=== PATIENT | female | born 1930 | race Caucasian/White ===

== ENCOUNTER 2017-05-06 08:49 | Observation (INO) | payer MEDICARE, OTHER ==
--- NOTE | 2017-05-06 11:04 | OR ---
Anesthesia Pre Procedure Eval Date of Service: 05/06/17 Pre Procedure Evaluation: Last Vital Signs Temp 36.8 C 05/06/17 09:20 Pulse 72 05/06/17 09:20 Resp 16 05/06/17 09:20 BP 136/52 05/06/17 09:20 Pulse Ox 97 05/06/17 09:20 Anesthesia Pre Procedure Evaluation DATE: 05/06/2017. TIME: 1055 INDICATIONS: Severe low back pain PAST MEDICAL HISTORY: 1 month history of low back pain, lumbar compression fractures, L4-5 disc bulge, spinal stenosis. EXAM: MRI report was reviewed. Pain is 10/10 on pain scale at present. ASSESSMENT OF MEDICAL STATUS: O.K. to proceed with WESLEY. PLANNED PROCEDURE: Fluoroscopic guided epidural steroid injection L4-5. Home Medications: HOME MEDICATIONS Acetaminophen [Tylenol] 1,000 mg PO Q6H PRN 05/03/17 [Last Taken Unknown] Aspirin [Aspirin Enteric Coated] 81 mg PO HS 05/03/17 [Last Taken Unknown] Calcium Carbonate/Vitamin D3 [Caltrate-600 with Vit D Tab] 1 each PO DAILY 05/03 [Last Taken Unknown] Clorazepate Dipotassium [Tranxene] 0.5 tab PO DAILY 05/03/17 [Last Taken Unknown ] Enalapril Maleate [Vasotec] 10 mg PO DAILY 05/03/17 [Last Taken 05/06/17 07:30] Flaxseed Oil [Flax Seed Oil] 1,000 mg PO DAILY 05/03/17 [Last Taken Unknown] Gemfibrozil [Lopid] 600 mg PO BID 05/03/17 [Last Taken Unknown] Hydroxyurea [Hydrea] 1,000 mg PO Q2D MDD alternate days with 500mg 05/03/17 [ Last Taken Unknown] Hydroxyurea [Hydrea] 500 mg PO Q2D MDD alternate days with 1000mg 05/03/17 [ Last Taken Unknown] Lidocaine [Lidoderm 5%] 1 patch TP DAILY MDD 12 hrs on, 12 hrs off 05/03/17 [ Last Taken Unknown] Multivit-Min/FA/Lycopen/Lutein [Centrum Silver Tablet] 1 each PO DAILY 05/03/17 [Last Taken Unknown] Ranitidine HCl [Zantac] 150 mg PO DAILY 05/03/17 [Last Taken Unknown]
[2017-05-06] MEDS ORDERED: DEXAMETHASONE SODIUM PHOSPHATE 10 MG/ML VIAL IJ ONE (11:34)
[2017-05-06] MEDS ORDERED: LIDOCAINE HCL/PF 5 ML VIAL IJ ONE (11:35)
[2017-05-06] MEDS ORDERED: IOPAMIDOL 20 ML VIAL IJ ONE (11:35)
--- NOTE | 2017-05-06 11:50 | OR ---
Anesthesia Procedure Note - Anesthesia Procedure Note Date of Service: 05/06/17 Narrative: Vital Signs - Last Taken Temp 36.8 C 05/06/17 09:20 Pulse 72 05/06/17 09:20 Resp 16 05/06/17 09:20 BP 136/52 05/06/17 09:20 Pulse Ox 97 05/06/17 09:20 05/06/17 11:47 ANESTHESIA PROCEDURE NOTE Date of Procedure: 05/06/2017. Time of procedure: 1130. Performed by: Guevara Sparrow CRNA Relations Specialist: None. Preprocedure diagnosis: Severe low back pain, multiple thoracic and lumbar compression fractures, L4-5 disc bulge, spinal stenosis. Post procedure diagnosis: Same. Procedure: Fluoroscopic guided epidural Steroid Injection L4-5. Indications: This 86-year-old female with a one-month history of nonradiating low back pain. Potential risks and benefits of the procedure were discussed with the patient and consent was obtained. Findings: See below. Details of the procedure: The patient was brought back to operating room #4. The patient was then placed in the prone position to comfort. DuraPrep was applied to the patient's back. Patient was then draped in sterile fashion. Lidocaine 1% was infiltrated to the skin and subcutaneous tissues at the level of the L4-5 interspace using fluoroscopic guidance. The epidural space was identified using a 20-gauge Tuohy needle with [id number] technique. 1 mL of Isovue contrast was then injected after negative aspiration for blood and CSF. The epidural space was outlined in the AP and lateral views. Preservative free Decadron 10 mg + 5 mL of 1% preservative-free lidocaine was administered to the epidural space after negative aspiration for blood and CSF. The Tuohy needle was removed intact. A Band-Aid was applied to the patient's back. The patient was then placed in a supine position for 5 minutes before returning to the ambulatory surgical unit. Total fluoroscopy time: 11.9 seconds. Cumulative dose: 2.41 mGy. EBL: Minimal. Fluids: N/A. Specimen: N/A. Post procedure condition: The patient tolerated the procedure well. No complications were noted. No motor weaknesses or paresthesias were noted upon discharge. Thank you for this consultation. Guevara Sparrow CRNA
[2017-05-06] MEDS ORDERED: IBUPROFEN 600 MG TABLET PO PRN (12:32)
[2017-05-06] MEDS ORDERED: ACETAMINOPHEN 500 MG TABLET PO PRN ×2 (12:32→20:09)
[2017-05-06] MEDS ORDERED: ONDANSETRON HCL/PF 2 MG/ML VIAL IV PRN (12:32)
[2017-05-06] MEDS ORDERED: MORPHINE SULFATE 2 MG/ML DISP.SYRIN IV PRN (12:32)
[2017-05-06] MEDS: HYDROcodone/ACETAMINOPHEN 1 EACH TABLET PO PRN ×2 (13:09→21:24)
[2017-05-06] MEDS ORDERED: HYDROXYUREA 500 MG CAPSULE PO SCH ×2 (20:15)
[2017-05-06] MEDS ORDERED: ASPIRIN 81 MG TABLET.DR PO SCH (21:00)
[2017-05-06] MEDS ORDERED: SENNOSIDES/DOCUSATE SODIUM 1 TAB TABLET PO SCH (21:00)
[2017-05-06] MEDS ORDERED: FAMOTIDINE 20 MG TABLET PO SCH (21:00)
[2017-05-06] MEDS: GEMFIBROZIL 600 MG TABLET PO SCH (21:35)
[2017-05-07] MEDS: HYDROcodone/ACETAMINOPHEN 1 EACH TABLET PO PRN (07:36)
[2017-05-07] MEDS ORDERED: ENALAPRIL MALEATE 5 MG TABLET PO SCH (09:00)
[2017-05-07] MEDS ORDERED: CALCIUM CARBONATE/VITAMIN D3 1 TAB TABLET PO SCH (09:00)
[2017-05-07] MEDS ORDERED: MULTIVITAMINS 1 CAP CAPSULE PO SCH (09:00)
[2017-05-07] MEDS ORDERED: HYDROXYUREA 500 MG CAPSULE PO SCH (09:00)
[2017-05-07] MEDS ORDERED: LIDOCAINE 1 PATCH ADH..PATCH TP SCH (09:00)
[2017-05-07] MEDS ORDERED: CLORAZEPATE DIPOTASSIUM 3.75 MG TABLET PO SCH (09:00)
[2017-05-07] MEDS ORDERED: FLAX SEED OIL 1000 MG PO SCH (09:00)
--- NOTE | 2017-05-07 10:09 | DS ---
(1) Compression fracture of L1 lumbar vertebra Problem: Acute (2) Compression fracture of L2 lumbar vertebra Problem: Acute (3) Intractable back pain Problem: Acute Description of Stay: ADMISSION DATE: 05/06/2017 DISCHARGE DATE: 05/07/2017 ADMISSION HPI: The patient complains of progressively worsening back pain over the past month to month and a half. She was admitted to [facility] approximately 2 weeks ago for severe back pain at which time an MRI was completed that showed multiple compression fractures, most notable for what appeared to be acute compression fractures of L1 and L2. The patient denies any recent falls or injuries. The patient was discharged from [facility] and instructed to take Tylenol at home as needed for the pain. The patient then presented again to [facility] over this past weekend with progressively worsening intractable back pain. She was set up for an epidural steroid injection here [facility] today which was completed but the patient continued to have severe back pain. We will admit her overnight to observation status in an attempt to achieve adequate pain control. Of note, the patient denies any loss of bowel or bladder incontinence although she does admit to chronic urinary incontinence that she describes as dribbling but this has been an issue for many years and has not changed recently. The patient also denies any numbness or tingling in her groin area. HOSPITAL COURSE: The patient was admitted to the hospital for intractable back pain secondary to acute L1 and L2 compression fractures. The patient had received an WESLEY as an outpatient. [facility] early in the morning prior to admission. The patients pain during her admission was adequately controlled with oral hydrocodone-APAP and the patient was given a written prescription for this medication and instructed to use it only as needed for severe pain. If pain does not improve and is not controlled, the patient may need a kyphoplasty in the future. Also, it is quite likely that the patient has osteoporosis and I would recommend consideration for treatment by her primary care provider. The patient was instructed to wear the TLSO brace for comfort when she is not in bed. The patient was discharged home in stable condition with [facility] arrangements made. The patient should follow-up with her primary care provider within one week. FOLLOW-UP APPOINTMENTS: -PCP within 1 week -[facility] at discharge with PT, OT, RN and aide NEW OR CHANGED MEDICATIONS: -Hydrocodone-APAP 5-325mg 1 tab Q3H PRN severe pain (patient given a written prescription for #50 with no refills) -Senna-S 2 tabs PO QHS and 1-2 tabs with every pain pill to hopefully avoid constipation DISCONTINUED MEDICATIONS: None Procedures Performed: none Discharge Location: Other - Home with [facility] Disposition: Home Health Service Condition: Stable Discharge Activity: Activity as tolerated Discharge Diet: General/regular food Half-Way Therapy: Physicial Therapy, Occupation Therapy Problem Oriented Discharge Instructions to Patient/Family: Epidural Steroid Injection, Care After Additional Patient Instructions (free text): [facility] at discharge. Please call report to . Fax [phone]. Fax face to face, H&P, D/C Summary, D/C orders and PT notes. -Follow-up with PCP within 1 week[address] up with Dr. Meredith 05/14 at 1:45 -[facility] Care at discharge Prescriptions (Any new or edited meds): HYDROcodone/ACETAMINOPHEN [[place] 5-325] 1 each PO Q3H PRN #50 tablet PRN Reason: Severe Pain (Pain Scale 7-10) Sennosides/Docusate Sodium [Senokot-S] 2 tab PO HS #60 tablet Complete Home Medications List: Complete Home Medication List: Aspirin [Aspirin Enteric Coated] 81 mg PO HS 05/03/17 Calcium Carbonate/Vitamin D3 [Caltrate 600 Plus D3 Tablet] 1 each PO DAILY 05/03 Clorazepate Dipotassium [Tranxene] 0.5 tab PO DAILY 05/03/17 Enalapril Maleate [Vasotec] 10 mg PO DAILY 05/03/17 Flaxseed Oil [Flax Seed Oil] 1,000 mg PO DAILY 05/03/17 Gemfibrozil [Lopid] 600 mg PO BID 05/03/17 Hydroxyurea [Hydrea] 500 mg PO Q2D MDD alternate days with 1000mg 05/03/17 Lidocaine [Lidoderm 5%] 1 patch TP DAILY MDD 12 hrs on, 12 hrs off 05/03/17 Multivit-Min/FA/Lycopen/Lutein [Centrum Silver Tablet] 1 each PO DAILY 05/03/17 Ranitidine HCl [Zantac] 150 mg PO HS 05/03/17 HYDROcodone/ACETAMINOPHEN [[place] 5-325] 1 each PO Q3H PRN #50 tablet 05/07/17 Sennosides/Docusate Sodium [Senokot-S] 2 tab PO HS #60 tablet 05/07/17
[2017-05-07] MEDS: GEMFIBROZIL 600 MG TABLET PO SCH (10:21)
--- NOTE | 2017-05-07 11:27 | HP ---
Chief Complaint - Chief Complaint Date of Service: 05/06/17 Time of Service: 12:30 Chief Complaint: Back pain History of Present Illness: The patient complains of progressively worsening back pain over the past month to month and a half. She was admitted to [facility] approximately 2 weeks ago for severe back pain at which time an MRI was completed that showed multiple compression fractures, most notable for what appeared to be acute compression fractures of L1 and L2. The patient denies any recent falls or injuries. The patient was discharged from [facility] and instructed to take Tylenol at home as needed for the pain. The patient then presented again to [facility] over this past weekend with progressively worsening intractable back pain. She was set up for an epidural steroid injection here [facility] today which was completed but the patient continued to have severe back pain. We will admit her overnight to observation status in an attempt to achieve adequate pain control. Of note, the patient denies any loss of bowel or bladder incontinence although she does admit to chronic urinary incontinence that she describes as dribbling but this has been an issue for many years and has not changed recently. The patient also denies any numbness or tingling in her groin area. - Patient's Past Medical History Patient History - Medical: Arthritis, Chronic Pain, Osteoporosis Patient History - Cardiac/Respiratory: Hypertension Patient History - Cancer: Other Patient History - Surgical Procedures: Cholecystectomy Patient History - Other: None - Family History Mother Family History - Medical: , Arthritis, Diabetes Type 2 Insulin Dependent Family History - Cardiac/Respiratory: Myocardial Infarction Family History - Cancer: No pertinent family hx Father Family History - Medical: , No pertinent hx Family History - Cardiac/Respiratory: Myocardial Infarction Family History - Cancer: No pertinent family hx Sister Family History - Medical: , History Unknown Family History - Cardiac/Respiratory: History Unknown Family History - Cancer: Lymphoma Brother Family History - Medical: , Depression Family History - Cardiac/Respiratory: Myocardial Infarction Family History - Cancer: Leukemia - Social History Living Situations: alone Abuse History: No History of abuse Psych History: Hx of Anxiety, Current tx/ever been on anti-depressants or anti- anxiety meds Smoking Status: Never smoker Have you smoked in the past 12 months: No Alcohol Use: none Drug Use: none Review Of Systems (GEN) - Review of Systems Generalized/Overall Review: Present: Weakness, Fatigue EENTM: Present: No Symptoms Reported Respiratory: Present: No Symptoms Reported Cardiac: Present: No Symptoms Reported Abdominal: Present: No Symptoms Reported Genitourinary: Present: No Symptoms Reported Musculoskeletal: Present: Back Pain Neurological: Present: No Symptoms Reported Skin: Present: No Symptoms Reported Endocrine: Present: No Symptoms Reported Misc: All systems neg except as marked Allergies/Adverse Reactions: Allergies Allergy/AdvReac Type Severity Reaction Status Date / Time Penicillins Allergy Unknown Verified 05/06/17 13:20 tobramycin Allergy Unknown Verified 05/06/17 13:20 tramadol Allergy Unknown Verified 05/06/17 13:20 codeine AdvReac Unknown Verified 05/06/17 13:20 Home Medications: HOME MEDICATIONS Aspirin [Aspirin Enteric Coated] 81 mg PO HS 05/03/17 [Last Taken Unknown] Calcium Carbonate/Vitamin D3 [Caltrate 600 Plus D3 Tablet] 1 each PO DAILY 05/03 [Last Taken Unknown] Clorazepate Dipotassium [Tranxene] 0.5 tab PO DAILY 05/03/17 [Last Taken Unknown ] Enalapril Maleate [Vasotec] 10 mg PO DAILY 05/03/17 [Last Taken 05/06/17 07:30] Flaxseed Oil [Flax Seed Oil] 1,000 mg PO DAILY 05/03/17 [Last Taken Unknown] Gemfibrozil [Lopid] 600 mg PO BID 05/03/17 [Last Taken Unknown] Hydroxyurea [Hydrea] 500 mg PO Q2D MDD alternate days with 1000mg 05/03/17 [ Last Taken Unknown] Lidocaine [Lidoderm 5%] 1 patch TP DAILY MDD 12 hrs on, 12 hrs off 05/03/17 [ Last Taken Unknown] Multivit-Min/FA/Lycopen/Lutein [Centrum Silver Tablet] 1 each PO DAILY 05/03/17 [Last Taken Unknown] Ranitidine HCl [Zantac] 150 mg PO HS 05/03/17 [Last Taken Unknown] HYDROcodone/ACETAMINOPHEN [[place] 5-325] 1 each PO Q3H PRN #50 tablet 05/07/17 [ Last Taken Unknown] Sennosides/Docusate Sodium [Senokot-S] 2 tab PO HS #60 tablet 05/07/17 [Last Taken Unknown] Exam - Exam Vital Signs: Vital Signs - Last Taken Temp 36.7 C 05/07/17 07:40 Pulse 61 05/07/17 10:21 Resp 18 05/07/17 11:11 BP 146/48 05/07/17 10:21 Pulse Ox 98 05/07/17 07:40 Constitutional: Present: Alert, Oriented x3, Cooperative, Acute distress - with movement secondary to severe low back pain, Elderly, Thin and frail ENT Exam: Present: moist mucous membranes Eye Exam: bilateral eye: normal inspection Respiratory: Present: lungs clear, normal breath sounds, no respiratory distress , no accessory muscle use Cardiovascular/Chest: Present: regular rate, rhythm, systolic murmur Abdomen: Present: soft, nontender, nondistended Extremity: Present: normal inspection, other - Midline bony TTP over the area of the upper lumbar spine Skin Exam: Present: warm/dry Neurologic: Present: alert, normal mood/affect, oriented x 3, other - Left lower extremity +4 out of 5 strength, right lower extremity +5 out of 5 strength. However, per patient, she feels like she is unable to give as much strength in her left lower extremity secondary to severe back pain. Negative straight leg raise bilaterally. Appearance: Present: appropriate appearance, appropriate insight, neat, no memory impairment Eye contact: Present: cooperative, good eye contact, normal speech Thoughts: Present: normal thought pattern, no apparent hallucination Assessment/Plan - Narrative Narrative: Admit patient to outpatient observation status. Respirations are both IV and oral pain medications with instructions given to use as first-line therapy and IV pain medications only for pain that is unrelieved by oral meds. Order placed for TLSO brace. Monitor patient's pain overnight with plans to discharge home in the morning likely with home health care arrangements. PT evaluation and treatment ordered. - Assessment/Plan (1) Compression fracture of L1 lumbar vertebra Problem: Acute (2) Compression fracture of L2 lumbar vertebra Problem: Acute (3) Intractable back pain Problem: Acute
[2017-05-07 13:34] VITALS: BP 181/73
[2017-05-08] MEDS ORDERED: HYDROXYUREA 500 MG CAPSULE PO SCH (09:00)
== END 2017-05-07 13:40 | disposition home health service (06) ==
LOC: AMB 08:49 → MS 12:23 → INTOOBSV 12:23
PROVIDERS: ADMIT Internal Medicine; ATTEND Internal Medicine
PROC: 3E0S3BZ Introduction of Anesthetic Agent into Epidural Space, Percutaneous Approach (ICD-10-PCS; principal; 2017-05-06)
PROC: 3E0S33Z Introduction of Anti-inflammatory into Epidural Space, Percutaneous Approach (ICD-10-PCS; 2017-05-06)
PROC: B01BYZZ Fluoroscopy of Spinal Cord using Other Contrast (ICD-10-PCS; 2017-05-06)
DX: S32.011A Stable burst fracture of first lumbar vertebra, initial encounter for closed fracture (principal); S32.021A Stable burst fracture of second lumbar vertebra, initial encounter for closed fracture; M51.27 Other intervertebral disc displacement, lumbosacral region; M54.5 Low back pain; I10 Essential (primary) hypertension; M81.0 Age-related osteoporosis without current pathological fracture; Z68.23 Body mass index [BMI] 23.0-23.9, adult
CPT/HCPCS: 62323; 72020; 76000; 97161; G0378; G8978; G8979; G8980